=== PATIENT | male | born 1950 | race Hispanic/Latino ===

== ENCOUNTER 2017-06-08 05:51 | Day surgery (SDC) | payer OTHER ==
[~2017-06-08] VITALS: Ht 175.3 cm; Wt 105.8 kg
[2017-06-17 15:20] VITALS: BP 146/65
[2017-06-17] MEDS ORDERED: CYCL10TA7 PO (15:48)
[2017-06-17] MEDS ORDERED: TRAM50TA4 PO (15:48)
[2017-06-17] MEDS ORDERED: ACET1TAB25 PO (15:48)
[2017-06-17] MEDS ORDERED: HYDR-3830 PO (15:48)
[2017-06-18] VITALS (18 sets, daily range): BP systolic 139–165; BP diastolic 72–86
[2017-06-18] MEDS ORDERED: CEFAZOLIN 3GM /D5W 100ML 100 ML IV SCH (06:00)
[2017-06-18] MEDS ORDERED: EPINEPHRINE 1 MG/ML 30ML VIAL IJ ONE (06:42)
[2017-06-18] MEDS ORDERED: LACTATED RINGERS 1000ML 1,000 ML IV ONE (06:55)
[2017-06-18] MEDS: CEFAZOLIN SODIUM 1 GM VIAL ONE ×2 (07:06→08:55)
[2017-06-18] MEDS ORDERED: GLYCOPYRROLATE 0.2 MG/ML 5 ML VIAL ONE (08:35)
[2017-06-18] MEDS ORDERED: SUCCINYLCHOLINE 200MG/10ML SYR ONE (08:35)
[2017-06-18] MEDS ORDERED: LIDOCAINE PF 2% 5ML ABBOJECT ONE (08:35)
[2017-06-18] MEDS ORDERED: DEXAMETHASONE SOD PHOSPHATE 10MG/ML 1ML VIAL ONE (08:35)
[2017-06-18] MEDS ORDERED: NEOSTIGMINE METHYLSULFATE 1MG/ML IV ONE (08:35)
[2017-06-18] MEDS ORDERED: ONDANSETRON HCL 4 MG/2 ML VIAL ONE ×3 (08:35→12:40)
[2017-06-18] MEDS ORDERED: MIDAZOLAM HCL 1 MG/ML 2ML VIAL ONE (08:36)
[2017-06-18] MEDS ORDERED: PROPOFOL 10 MG/ML 20ML VIAL IV ONE (08:36)
[2017-06-18] MEDS ORDERED: FENTANYL CITRATE PF 50 MCG/1 ML 2ML VIAL ONE (08:36)
== END 2017-06-18 13:15 | disposition home or self-care (01) ==
LOC: DAH 05:51
PROVIDERS: ATTEND Orthopaedic Surgery
DX: S46.011A Strain of muscle(s) and tendon(s) of the rotator cuff of right shoulder, initial encounter (principal); M25.811 Other specified joint disorders, right shoulder; M19.90 Unspecified osteoarthritis, unspecified site; M75.41 Impingement syndrome of right shoulder; X58.XXXA Exposure to other specified factors, initial encounter; Y92.89 Other specified places as the place of occurrence of the external cause; Y99.8 Other external cause status
CPT/HCPCS: 29824; 29826; 29827; 29828; A4218 ×2; A4565; A4649 ×6; A4930 ×2; A6204; C1713; C1763; G0168; J0171; J0330; J0690; J1100; J2001; J2250; J2405 ×3; J2704; J2710; J3010; J3490; J7030; J7120